=== PATIENT | male | born 2000 | race Caucasian/White ===

== ENCOUNTER 2021-10-14 01:03 | Emergency (ER) | payer SELFPAY ==
--- NOTE | 2021-10-14 07:48 | Event Note ---
ED Screening Note ED Screening Note: ELISE ZELAYA Shazia aware pt still in ER This initial assessment/diagnostic orders/clinical plan/treatment(s) is/are subject to change based on patients health status, clinical progression and re- assessment by fellow clinical providers in the ED. Further treatment and workup at subsequent clinical providers discretion. Patient/guardian urged not to elope from the ED as their condition may be serious if not clinically assessed and managed. Initial orders include:
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
[2021-10-14 10:00] VITALS: BP 140/78
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
== END 2021-10-14 11:42 | disposition home or self-care (01) ==
LOC: ED 01:03
DX: S00.83XA Contusion of other part of head, initial encounter (principal); Y04.8XXA Assault by other bodily force, initial encounter; Y93.89 Activity, other specified; Y92.89 Other specified places as the place of occurrence of the external cause; Y99.8 Other external cause status
CPT/HCPCS: 70150; 99283